=== PATIENT | male | born 1950 | race Caucasian/White ===

== ENCOUNTER 2016-04-20 07:24 | Day surgery (SDC) | payer MEDICARE, OTHER ==
--- NOTE | 2016-04-19 10:03 | HP ---
DATE OF CLINIC: 04/12/2016 JOSSELINE GUZMAN : 1950 PLANNED PROCEDURE: Right Shoulder Arthroscopy, Subacromial Decompression, Distal Clavicle Excision, Possible Rotator Cuff Repair and Possible Biceps Repair DATE OF SURGERY: April 20, 2016 SURGEON: Evert Guevara M.D. HISTORY OF PRESENT ILLNESS Josseline Guzman is a 65 year old male. * Medication list reviewed with patient allergy list reviewed with patient. * Tried NSAIDS, Ibuprofen * Has not tried Physical Therapy * Has not tried Injections This is a 65-year-old right-handed dominant gentleman who was referred over from Ron Epstein for complaints of right shoulder pain. He has had long-standing issues with his right shoulder, but had a fall in January and since that time has had a significant worsening of his symptoms. He has both weakness and pain. No instability. He is taking anti-inflammatories without any adequate relief of his symptoms. He has not had physical therapy or injections. After discussion and review of treatment options, both operative and non-operative, he has elected to proceed with surgery and presents today preoperatively. PAST MEDICAL AND SURGICAL HISTORY: Are as documented CURRENT MEDICATION * Ibuprofen 800 MG Tablet as directed 1 po tid prn for pain, 30 days, 0 refills * Multi-vitamins Capsule 1 once a day 0 days, 0 refills * Vitamin D3 5000 UNIT Tablet 1 once a day 0 days, 0 refills PAST MEDICAL/SURGICAL HISTORY Reported: No recent change in medical history. Medical: Reported numbness Right foot, Reported tingling Right foot, recent methicillin-resistant Staphylococcus aureus infection Left arm Oct 2015, Diabetes Mellitus type 2 - has resolved, history of Arthritis both knee's, Depression 20yrs ago hospitalized - no recent issues, Vertigo Balance problems- trip and fall lately, and Poor healing wounds/lesions. Surgical / Procedural: Tonsilectomy 1970. Diagnoses: Essential hypertension. Hyperlipidemia. Diabetes mellitus Type 2 diabetes mellitus. Lumbago (CHRONIC). Depression Anxiety disorder NOS Surgical: * Tonsillectomy 1970 SOCIAL HISTORY Social history unchanged. Behavioral: Caffeine use Coffee - 15 cups a day, daily coffee consumption, daily tea consumption, current smoker 1 pack per day, former smoker, and non-smoker quit smoking 4 yrs ago. Smoking status: Former smoker. Alcohol: Alcohol use 5-6 a year. Habits: Poor exercise habits started exercising last week. Home Environment: Lives with spouse ....Elo. 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 ALLERGIES * Simvastatin (Intolerance) Reaction: diffuse joint pain FAMILY HISTORY 4 children living Family history unchanged No family hx of breast cancer Depression sister and pt. now resolved Family medical history Mother- Osteoarthritis, Thyroid Disease, Rheumatoid Arthritis Father- Kidney Disease, OA, Cancer, RA Sister- Depression REVIEW OF SYSTEMS No recent constitutional symptoms to include fevers and chills. No recent cardiovascular symptoms to include chest pain or palpitations. No recent respiratory symptoms to include shortness of breath or recent infections. The patient states he is very healthy. PHYSICAL FINDINGS * Vitals taken 04/12/2016 01:23 pm BP-Sitting R 110/62 mmHg BP Cuff Size Regular Pulse Rate-Sitting 54 bpm Temp-Oral 97.5 F Height 69 in Weight 231 lbs Body Mass Index 34.1 kg/m2 Body Surface Area 2.20 m2 Pain Level 4 Ears, Nose, Throat: * ENT: normal. Lungs: * Clear to auscultation. Cardiovascular: Heart Rate and Rhythm: * Normal. Abdomen: * Normal. Neurological: Motor: * Dominant Hand = Right Hand. Patient is a well-developed, well-nourished male in no acute distress. They are awake, alert and conversant throughout the encounter. CARDIOVASCULAR: Intact peripheral pulses on bilateral upper extremities. No significant edema on inspection of bilateral upper extremities. NEUROLOGIC: Patient had intact coordinated composite motion of the bilateral upper extremities and sensation intact to light touch in all distributions of bilateral upper extremities. PSYCHIATRIC: Patient was oriented to person, place and time and displayed appropriate mood and affect during the encounter. SKIN: Exam of the skin on bilateral upper extremities showed no significant scars, lesions, rashes or masses. FOCUSED MUSCULOSKELETAL EXAM: The patient has no bruising or swelling or erythema about the shoulder. He has tenderness at the posterior lateral shoulder in the region of the greater tuberosity and the rotator cuff insertions. Active forward elevation and abduction is to approximately 45 degrees. He can externally rotate approximately 10 degrees, internally rotate to L5. He has weakness to external rotation at 0, 45 and 90 degrees of abduction and cannot actually get to 90 degrees of abduction without being passively placed there. He has good internal rotation strength at 5/5. He has tenderness at the AC joint. He does have some feelings of crepitance in the subacromial space when he moves the shoulder. He is tender at the bicipital groove. He has positive biceps signs. No evidence of instability. IMAGING X-rays showed intact glenohumeral joint. There is significant calcific tendinitis as well as subacromial spur and significant AC joint degenerative changes. His rotator cuff appears to have some partial thickness tears on an ultrasound from early in February of this year. ASSESSMENT A 65-year-old male with right shoulder impingement, rotator cuff injury, possible biceps injury and significant AC arthrosis with subacromial spurs. THERAPY * Patient fall risk screen positive. * Patient eligible for fall risk assessment. * Patient received fall risk assessment. PLAN * Chest pain, unspecified Radiology/X-ray: Chest 2 view Routine X-ray [id number] Instructions: Pre-op Chest XR * Sprain of right rotator cuff capsule, initial encounter Percocet 5-325 MG TABS, 1or 2 tablets every 4 to 6 hours as needed, 6 days, 0 refills * Arthroscopy of the shoulder, SAD, distal clavicle excision, possible RCR, possible biceps repair -right CARE TEAM Kristyn Smith MD [facility] Osmar Montana MD Orthopaedic Surgery of the Spine SURGICAL CONSENT We have discussed surgical options including right shoulder arthroscopy, SAD, distal clavicle excision, possible RCR, possible biceps repair and non-operative management. The patient was counseled in detail regarding the diagnosis, treatment options available, prognosis of each treatment option and the potential risks and complications. The risks of surgery include, but are not limited to, anesthetic , neurovascular complications, pulmonary embolism, deep vein thrombosis, wound dehiscence, failure of any or all of the discussed procedures, infection of the joint or surrounding soft tissue, need for revision surgery, chronic pain, limitations in activities of daily living, inability to return to work, and loss of normal range of motion or functional use of the extremity. There is the possibility of failure over time that may require additional operative or non-operative treatment. The patient acknowledged that there are a number of perioperative risks not mentioned here and would still like to proceed. The patient is aware of and understands these risks, and wishes to proceed with the proposed surgical procedure and other procedures as indicated at the time of surgery. We will have the patient see their PCP for a preoperative medical risk assessment. The preoperative instructions were reviewed with the patient and all questions were answered. PB/sg
[~2016-04-20 07:24] MED LIST: CEFAZOLIN SODIUM 2 GRAM PREMIX 100 ML IV ONE; IV START KIT ONE; LACTATED RINGERS 1,000 ML ONE
[2016-04-20] MEDS ORDERED: CEFAZOLIN SODIUM 2 GRAM PREMIX 100 ML IV PRN (07:30)
[2016-04-20] MEDS ORDERED: NERVE BLOCK PROCEDURAL TRAY 1 EACH ONE (07:56)
[2016-04-20] MEDS ORDERED: ROPIVACAINE 0.2% 20 ML VIAL ONE (07:56)
[2016-04-20] MEDS ORDERED: ROPIVACAINE 0.5% 30 ML VIAL ONE (07:58)
[2016-04-20] MEDS ORDERED: MIDAZOLAM HCL 5 MG/5 ML VIAL ONE ×2 (08:04→08:09)
[2016-04-20] MEDS ORDERED: FENTANYL 100 MCG/2 ML VIAL ONE (08:04)
[2016-04-20] MEDS ORDERED: LIDOCAINE 2% (PRES FREE) 5 ML VIAL ONE (08:04)
[2016-04-20] MEDS ORDERED: PROPOFOL 20 ML IV ONE (08:04)
[2016-04-20] MEDS ORDERED: ROCURONIUM BROMIDE 10 MG/ML DOSE IV ONE ×4 (08:04)
[2016-04-20] MEDS ORDERED: EPHEDRINE SULFATE UD SYR 25 MG 25 MG/5 ML SYRINGE IV ONE (10:25)
[2016-04-20] MEDS ORDERED: BUPIVACAINE 0.5% W/EPI SDV 30 ML VIAL ONE (10:57)
[2016-04-20] MEDS ORDERED: FAMOTIDINE 10 MG/ML 2ML VIAL ONE (11:02)
[2016-04-20] MEDS ORDERED: GLYCOPYRROLATE 0.2 MG/ML 1ML VIAL ONE (11:02)
[2016-04-20] MEDS ORDERED: METOCLOPRAMIDE HCL 5 MG/ML 2ML VIAL ONE (11:02)
[2016-04-20] MEDS ORDERED: PHENYLEPHRINE 10 MG/1 ML (1%) VIAL ONE (11:02)
[2016-04-20] MEDS ORDERED: ONDANSETRON 4 MG/2ML 2 ML VIAL ONE (11:02)
[2016-04-20] MEDS ORDERED: ONDANSETRON 4 MG/2ML 2 ML VIAL IV PRN ×2 (11:17→12:27)
[2016-04-20] MEDS ORDERED: ON-Q PUMP/ROPIVACAINE 0.2% 450 ML in PREMIX BAG 1 EACH NB PRN (11:17)
[2016-04-20] MEDS ORDERED: MORPHINE SULFATE 4 MG/ML SYRINGE IV PRN (11:17)
[2016-04-20] MEDS ORDERED: MEPERIDINE 25 MG/ML SYRINGE IV PRN (11:17)
[2016-04-20] MEDS ORDERED: HYDRALAZINE HCL 20 MG/1 ML VIAL IV PRN (11:17)
[2016-04-20] MEDS ORDERED: PROMETHAZINE HCL 25 MG/ML VIAL IM PRN (11:17)
[2016-04-20] MEDS ORDERED: ATROPINE SULFATE 0.4 MG/1 ML VIAL IV PRN (11:17)
[2016-04-20] MEDS ORDERED: NALOXONE HCL 0.4 MG/ML VIAL IV PRN (11:17)
[2016-04-20] MEDS ORDERED: LACTATED RINGERS 1,000 ML IV SCH ×2 (11:30→12:30)
[2016-04-20] MEDS ORDERED: DIPHENHYDRAMINE HCL 50 MG/1 ML VIAL IV PRN (12:27)
[2016-04-20] MEDS ORDERED: HYDROMORPHONE HCL 1 MG/ML SYRINGE IV PRN (12:27)
[2016-04-20] MEDS ORDERED: OXYCODONE/ACETAMINOPHEN 5/325 MG TABLET PO PRN (12:27)
[2016-04-20] MEDS ORDERED: KETOROLAC TROMETHAMINE 30 MG/ML 1 ML VIAL IV PRN (12:27)
--- NOTE | 2016-04-20 12:34 | PCMBPN ---
Brief Post Op Note: Date of Procedure: 04/20/16 Start Time: 1000 Preoperative Diagnosis: 1. right shoulder rotator cuff tear, impingement, AC joint arthrosis Postoperative Diagnosis: 1. Same 2. proximal biceps tendon rupture Procedure: right shoulder arthroscopy, subacromial decompression with acromioplasty, rotator cuff repair, open distal clavicle resection Surgeon: Evert Guevara MD Assist: Ron Epstein PA-C Anesthesia: Talita Greene CRNA Findings: as above; ruptured and absent biceps tendon Condition: stable to PACU Complications: none IV Fluids: 3000 mLs of LR Urine Output: 0 mLs Estimated Blood Loss: 50 mLs Tourniquet Time: none Specimens: none Implants: 5 Arthrex swivelock anchors Drains: none Evert Guevara MD
[2016-04-20] MEDS ORDERED: ON-Q PUMP/ROPIVACAINE 0.2% 450 ML ONE (12:54)
--- NOTE | 2016-04-20 13:59 | RAD ---
SHOULDER-RIGHT 1 VIEW COMPARISON: Right shoulder 4 views, 02/12/2016 HISTORY: Rotator cuff repair and distal clavicle resection. FINDINGS: Views: AP view of the right shoulder Bones: Normal mineralization. Distal clavicle resection and acromioplasty. Joints: Normal Soft tissues: Normal IMPRESSION: Postoperative changes include distal clavicle resection and acromioplasty.
--- NOTE | 2016-04-21 10:46 | OP ---
Gunner RAMAN : 1950 [id number] DATE OF SERVICE: April 20, 2016 PREOPERATIVE DIAGNOSES: Right shoulder rotator cuff tear, subacromial impingement and AC joint arthrosis. POSTOPERATIVE DIAGNOSES: Right shoulder rotator cuff tear, subacromial impingement and AC joint arthrosis, and proximal biceps tendon rupture. PROCEDURE PERFORMED: RIGHT SHOULDER ARTHROSCOPY WITH ARTHROSCOPIC SUBACROMIAL DECOMPRESSION, ACROMIOPLASTY AND ROTATOR CUFF REPAIR AND AN OPEN DISTAL CLAVICLE RESECTION. SURGEON: Evert Guevara M.D. GAS STATION MANAGER: Ron Epstein P.A.-C. ANESTHESIA: Mariajose PaintingNKimani SPECIMENS: No material was sent to the laboratory. ESTIMATED BLOOD LOSS: 50 mL. FLUIDS REPLACED: 3000 mL of crystalloid. URINE OUTPUT: None. TOURNIQUET TIME: None. IMPLANTS: Were five Arthrex SwiveLock anchors in a SpeedBridge format. INDICATIONS: This is a 65-year-old gentleman with history, physical exam and imaging findings consistent with a right shoulder rotator cuff tear who has failed a course of nonoperative measures and desires definitive management in the form of surgery. Please see admission H&P for additional details. DESCRIPTION OF PROCEDURE: The patient was identified in the pre-operative holding area where he was marked with an indelible marker by the operating surgeon. He had an interscalene block placed by the anesthesia providers under ultrasound guidance and then was taken to the operating room where he was placed in the supine position on the operating room table. General anesthesia was induced, perioperative antibiotics were administered. He was repositioned in the upright beach chair seated position. All bony prominences were padded. He was prepped and draped in the usual sterile fashion for surgery. An operative time out was performed and confirmed by all members of the operative team. A standard posterior portal was created and a 30 degree viewing arthroscope was inserted into the shoulder joint. Optics were directed anteriorly and an anterior portal was localized with a spinal needle and created in a standard fashion. A 7 mm cannula was inserted to allow for instrumentation. Diagnostic arthroscopy was performed with the findings as noted above. The patient had very mild signs of arthritis on the glenoid but no significant wear on the humeral head. The labrum was somewhat frayed. The biceps tendon had ruptured at the biceps tendon anchor and retracted out of the shoulder. There was a large tear that involved about 80% of the width of the supraspinatus. Infraspinatus and subscapularis, teres minor were all intact. There were no loose bodies and there was no other labral pathology identified. A lateral portal was created and the rotator cuff was debrided back to a stable rim. The bed was prepared using the arthroscopic shaver and a radiofrequency ablator. The camera was then moved to above the rotator cuff and a subacromial bursectomy was performed. A bur was brought in through the lateral portal and an acromioplasty was performed to coplane the undersurface of the acromion. Two medial row SwiveLocks were then placed through the lateral portal and the sutures passed through the cuff. These were split and crossed over to create a SpeedBridge and two additional SwiveLocks were placed laterally completing the SpeedBridge. At this point we felt that there was a small dog ear posteriorly so one additional 5.5 SwiveLock was placed with a #[address] a simple stitch reapposing the cuff down in this region. At this point we felt that we had addressed the intra-articular and subacromial pathology so the camera and the instruments were removed. An open incision 2 cm in length was made directly over the AC joint. Dissection was carried down elevating the clavipectoral fascia; 1 cm distal clavicle was resected using an oscillating saw and then peeled away from its soft tissue attachments with the Bovie. The arm was taken into cross body adduction and no ongoing impingement at the AC joint was occurring. The clavipectoral fascia was closed with #0 Vicryl, subcutaneous tissues with #2-0 Vicryl, and all skin incisions with a #4-0 Nylon. A sterile dressing of Xeroform, fluffs, ABD's and Medipore tape was applied and the patient was placed into an abduction brace. The drapes were removed. He was awakened from his anesthesia and extubated in the operating room and he was transferred to a stretcher and taken postoperatively to the postanesthesia care unit in stable condition. There were no observed intraoperative complications during this procedure. Job [id number] Cc: [facility]
== END 2016-04-20 15:45 | disposition home or self-care (01) ==
LOC: SDC 07:24
PROVIDERS: ATTEND Orthopaedic Surgery
PROC: 0LQ14ZZ Repair Right Shoulder Tendon, Percutaneous Endoscopic Approach (ICD-10-PCS; principal; 2016-04-20)
PROC: 0RNJ4ZZ Release Right Shoulder Joint, Percutaneous Endoscopic Approach (ICD-10-PCS; 2016-04-20)
PROC: 0PB90ZZ Excision of Right Clavicle, Open Approach (ICD-10-PCS; 2016-04-20)
DX: S46.011A Strain of muscle(s) and tendon(s) of the rotator cuff of right shoulder, initial encounter (principal); W19.XXXA Unspecified fall, initial encounter; S46.211A Strain of muscle, fascia and tendon of other parts of biceps, right arm, initial encounter; M65.221 Calcific tendinitis, right upper arm; M19.011 Primary osteoarthritis, right shoulder; E11.9 Type 2 diabetes mellitus without complications; I10 Essential (primary) hypertension; E78.5 Hyperlipidemia, unspecified; Z79.1 Long term (current) use of non-steroidal anti-inflammatories (NSAID); Z88.8 Allergy status to other drugs, medicaments and biological substances; Z87.891 Personal history of nicotine dependence
CPT/HCPCS: 73020; 29827; 29826; 23120; J3010; J2795 ×4; J2370; J2765; J2250 ×2; J2405; J7120; A4306; J0690